=== PATIENT | female | born 1995 ===

== ENCOUNTER 2018-05-05 22:43 | Emergency (ER) | payer BC ==
--- NOTE | 2018-05-05 23:12 | EDPHY ---
H & P Stated Complaint: Accidentally inhaled fumes from chemical, syncope, CP, vision blurry Time Seen by Provider: 05/05/18 23:05 HPI/ROS: HPI: This is a 22-year-old female who presents with Chief Complaint: Accidentally inhaled fumes from chemical, syncope, CP, vision blurry Location: Body Quality: Fainting, exposure to fumes Duration: 6 8 hr prior to arrival Signs and Symptoms: no shortness of breath at rest, no shortness of breath on exertion, no cough, no chest pain, no palpitations, no lower extremity edema, no wheezing, no orthopnea, no paroxysmal nocturnal dyspnea, no fever, no injury/ trauma, no hemoptysis, no carpal pedal spasms Timing: Acute, resolved Severity: Moderate Context: Patient is a student at [employer], was and chemistry class pouring a chemical underneath the chapin when the fumes were very strong and caused her to become lightheaded and dizzy. She reports that she had a temporal bilateral headache. She reports that approximately 2 hr later she was sitting down and started to feel lightheaded and faint again. She thinks that she may have "passed out for a few seconds." She remembers "snapping her head forward." She then started to breathe rapidly and feel numbness and tingling in both of her hands. She believes that she may have had a panic attack. She reports that she ate and drank today normally. She is on day 2 of her menses with normal flow. She recently completed antibiotics for upper respiratory infection approximately 5 days ago. Modifying Factors: None Comment: ROS: A comprehensive 10 system review of systems is otherwise negative aside from elements mentioned in the history of present illness. MEDICAL/SURGICAL/SOCIAL HISTORY: Medical history: Generally healthy. Does not take any regular medications. Surgical history: Denies Social history: Student at [employer], denies alcohol, tobacco, drug use. CONSTITUTIONAL: Well-developed, well-nourished, young adult white female, awake and alert, no obvious distress HEENT: Atraumatic and normocephalic, PERRL, EOMI. Nares patent; no rhinorrhea; no nasal mucosal edema. Tympanic membranes clear. Oropharynx clear, no exudate and moist pink mucosa. Airway patent. No lymphadenopathy. No meningismus. No carotid bruits. Cardiovascular: Normal S1/S2, regular rate, regular rhythm, without murmur rub or gallop. PULMONARY/CHEST: Symmetrical and nontender. Clear to auscultation bilaterally. Good air movement. No accessory muscle usage. ABDOMEN: Soft, nondistended, nontender, no rebound, no guarding, no peritoneal signs, no masses or organomegaly. No CVAT. EXTREMITIES: 2/2 pulses, strength 5/5, no deformities, no clubbing, no cyanosis or edema. NEUROLOGICAL: no focal neuro deficits. GCS 15. Cranial nerves 2-12 grossly intact. SKIN: Warm and dry, no erythema. no rash. Good capillary refill. Source: Patient Exam Limitations: No limitations - Personal History LMP (Females 10-55): 1-7 Days Ago Current Tetanus/Diphtheria Vaccine: Yes Current Tetanus Diphtheria and Acellular Pertussis (TDAP): Yes - Medical/Surgical History Hx Asthma: No Hx Chronic Respiratory Disease: No Hx Diabetes: No Hx Cardiac Disease: No Hx Renal Disease: No Hx Cirrhosis: No Hx Alcoholism: No Hx HIV/AIDS: No Hx Splenectomy or Spleen Trauma: No Other PMH: denies - Social History Smoking Status: Never smoked Constitutional: Initial Vital Signs Temperature (C) 36.9 C 05/05/18 22:46 Heart Rate 68 05/05/18 22:46 Respiratory Rate 18 05/05/18 22:46 Blood Pressure 136/85 H 05/05/18 22:46 O2 Sat (%) 97 05/05/18 22:46 O2 Delivery Mode Room Air Allergies/Adverse Reactions: No Known Allergies Allergy (Unverified 05/05/18 22:46) Home Medications: Medication Instructions Recorded NK [No Known Home Meds] 05/05/18 Medical Decision Making - Diagnostics Imaging Results: Imaging Impressions Chest X-Ray 05/05/18 23:04 Impression: Normal chest x-ray. ED Course/Re-evaluation: Vital signs reviewed and stable upon arrival. Placed on associate theatre professor. IV access, laboratory studies, chest x-ray, EKG, IV fluids given EKG my read shows normal sinus rhythm with a rate of 57 beats per minute, flattened T-waves, no acute ischemic changes, no arrhythmias, no heart block. Given 1 L normal saline Abdomen is soft and nontender. Doubt surgical process and need for imaging. 2343: Labs reviewed. No signs of leukocytosis/anemia/platelet dysfunction/YUMIKO/ electrolyte imbalance/VTE/ Chest x-ray my read shows no opacity, no effusion, no pneumothorax, no widened mediastinum. Advised supportive care. No signs of pneumonitis, respiratory distress, hypoxia. This patient was seen under the supervision of my secondary supervising physician. I evaluated care for this patient independently. Discussed this patient with Dr. Foreman who did not see the patient. Differential Diagnosis: Syncope including but not limited to vasovagal syncope, arrhythmia, dehydration , and blood loss. - Data Points Laboratory Results: Laboratory Results 05/05/18 23:02 05/05/18 23:02 05/05/18 05/05/18 05/05/18 23:02 23:02 23:02 WBC RBC Hgb Hct MCV MCH MCHC RDW Plt Count MPV Neut % (Auto) Lymph % (Auto) Lyman % (Auto) Eos % (Auto) Baso % (Auto) Nucleat RBC Rel Count Absolute Neuts (auto) Absolute Lymphs (auto) Absolute Monos (auto) Absolute Eos (auto) Absolute Basos (auto) Absolute Nucleated RBC Immature Gran % Immature Gran # D-Dimer < 0.27 ug/mLFEU ug/mLFEU (0.00-0.50) Sodium 136 mEq/L mEq/L (135-145) Potassium 3.7 mEq/L mEq/L (3.5-5.2) Chloride 106 mEq/L mEq/L (97-110) Carbon Dioxide 18 mEq/l L mEq/l (22-31) Anion Gap 12 mEq/L mEq/L (6-14) BUN 16 mg/dL mg/dL (7-23) Creatinine 0.7 mg/dL mg/dL (0.6-1.0) Estimated GFR > 60 Glucose 99 mg/dL mg/dL (70-100) Calcium 9.3 mg/dL mg/dL (8.5-10.4) Beta HCG, Qual NEGATIVE 05/05/18 23:02 WBC 6.38 10^3/uL 10^3/uL (3.80-9.50) RBC 4.31 10^6/uL 10^6/uL (4.18-5.33) Hgb 13.4 g/dL g/dL (12.6-16.3) Hct 40.2 % % (38.0-47.0) MCV 93.3 fL fL (81.5-99.8) MCH 31.1 pg pg (27.9-34.1) MCHC 33.3 g/dL g/dL (32.4-36.7) RDW 13.2 % % (11.5-15.2) Plt Count 227 10^3/uL 10^3/uL (150-400) MPV 11.9 fL H fL (8.7-11.7) Neut % (Auto) 51.9 % % (39.3-74.2) Lymph % (Auto) 40.1 % % (15.0-45.0) Lyman % (Auto) 5.8 % % (4.5-13.0) Eos % (Auto) 1.3 % % (0.6-7.6) Baso % (Auto) 0.6 % % (0.3-1.7) Nucleat RBC Rel Count 0.0 % % (0.0-0.2) Absolute Neuts (auto) 3.31 10^3/uL 10^3/uL (1.70-6.50) Absolute Lymphs (auto) 2.56 10^3/uL 10^3/uL (1.00-3.00) Absolute Monos (auto) 0.37 10^3/uL 10^3/uL (0.30-0.80) Absolute Eos (auto) 0.08 10^3/uL 10^3/uL (0.03-0.40) Absolute Basos (auto) 0.04 10^3/uL 10^3/uL (0.02-0.10) Absolute Nucleated RBC 0.00 10^3/uL 10^3/uL (0-0.01) Immature Gran % 0.3 % % (0.0-1.1) Immature Gran # 0.02 10^3/uL 10^3/uL (0.00-0.10) D-Dimer Sodium Potassium Chloride Carbon Dioxide Anion Gap BUN Creatinine Estimated GFR Glucose Calcium Beta HCG, Qual Medications Given: Discontinued Medications Sodium Chloride (Ns) 1,000 mls @ 0 mls/hr IV EDNOW ONE; Wide Open PRN Reason: Protocol Stop: 05/05/18 23:17 Last Admin: 02/18/19 23:22 Dose: 1,000 mls Departure - Departure Disposition: Home, Routine, Self-Care Clinical Impression: Exposure to industrial fumes, Near syncope Condition: Good Instructions: Syncope (ED), Near Syncope (ED) Additional Instructions: Consume a minimum of 8-10 glasses of water or electrolyte fluid replacement drinks that include Gatorade, Powerade, Pedialyte. Please avoid any fume exposure for the next 24 hours. Avoid any alcohol or drugs. Follow up with student health clinic in the next 5-7 days if symptoms persist. Return to the ER immediately if you have progressive headaches, neurologic deficits, gait abnormality, visual disturbance, slurred speech, or any other symptom that concerns you. Referrals: [facility] ,. [Clinic] - As per Instructions Stand Alone Forms: School Excuse
[2018-05-05] MEDS ORDERED: NS 1,000 ML IV ONE (23:16)
[2018-05-05 23:17] LABS: PLATELET COUNT 227 10^3/uL (150-400)
[2018-05-06 00:03] VITALS: BP 128/86
--- NOTE | 2018-05-07 15:00 | CPEKG ---
Test Reason : OPEN Blood Pressure : / mmHG Vent. Rate : 057 BPM Atrial Rate : 056 BPM P-R Int : 150 ms QRS Dur : 094 ms QT Int : 445 ms P-R-T Axes : 031 004 011 degrees QTc Int : 434 ms Sinus rhythm Confirmed by Ned Padilla ([id number]) on 05/07/2018 2:59:49 PM Referred By: Diony Foreman Confirmed By:Ned Padilla
--- NOTE | 2018-05-11 19:53 | CPEKG ---
Test Reason : OPEN Blood Pressure : / mmHG Vent. Rate : 057 BPM Atrial Rate : 056 BPM P-R Int : 150 ms QRS Dur : 094 ms QT Int : 445 ms P-R-T Axes : 031 004 011 degrees QTc Int : 434 ms Sinus rhythm Confirmed by Diony Foreman ([id number]) on 05/11/2018 7:51:35 PM Referred By: Diony Foreman Confirmed By:Diony Foreman
== END 2018-05-06 00:07 | disposition home or self-care (01) ==
DX: R55 Syncope and collapse (principal); E86.9 Volume depletion, unspecified; Z77.098 Contact with and (suspected) exposure to other hazardous, chiefly nonmedicinal, chemicals